=== PATIENT | male | born 1975 | race Caucasian/White ===

== ENCOUNTER 2023-10-07 19:13 | Emergency (ER) | payer BC ==
[~2023-10-07] VITALS: Ht 185.4 cm; Wt 77.9 kg
--- NOTE | 2023-10-07 20:11 | NUR ---
I have reviewed and agree with assessments performed and documented by (ROXANE BERNARDO)
[2023-10-07] MEDS ORDERED: ketorolac trometh inj. 60 MG/2 ML VIAL IM ONE (21:50)
[2023-10-07] MEDS ORDERED: SULF1TAB49 PO (21:57)
[2023-10-07] MEDS ORDERED: CEPH-585 PO (21:57)
[2023-10-07 22:09] VITALS: BP 110/86; PULSE 90; RESP 14; TEMP 98.9; O2SAT 99
== END 2023-10-07 22:11 | disposition home or self-care (01) ==
LOC: ER 19:13
DX: L03.115 Cellulitis of right lower limb (principal); L03.116 Cellulitis of left lower limb
CPT/HCPCS: 96372; 99283; J1885; A6449